=== PATIENT | female | born 1985 | race Two or more races ===

== ENCOUNTER 2018-09-12 15:39 | Emergency (ER) | payer OTHER ==
[~2018-09-12] VITALS: Ht 167.6 cm; Wt 51.3 kg
[2018-09-15] MEDS ORDERED: VALACYCLOVIR1000 MG PO (04:54)
== END 2018-09-12 18:05 | disposition home or self-care (01) ==
LOC: ER 15:39
DX: N34.2 Other urethritis (principal); N76.4 Abscess of vulva

== ENCOUNTER → 2018-09-15 | Emergency (ER) | payer OTHER ==
[~2018-09-15] VITALS: Ht 165.1 cm; Wt 52.2 kg
[~2018-09-15] MED LIST: VALACYCLOVIR1000 MG PO
== END | disposition home or self-care (01) ==
LOC: ER 03:02
DX: S30.824A Blister (nonthermal) of vagina and vulva, initial encounter (principal); A60.04 Herpesviral vulvovaginitis; W26.8XXA Contact with other sharp object(s), not elsewhere classified, initial encounter; Y93.E8 Activity, other personal hygiene; Y92.89 Other specified places as the place of occurrence of the external cause; Y99.8 Other external cause status

== ENCOUNTER 2019-04-21 01:14 | Emergency (ER) | payer OTHER ==
[~2019-04-21] VITALS: Ht 167.6 cm; Wt 49.9 kg
[2019-04-21] MEDS ORDERED: KETO10TA2 PO (02:59)
[2019-04-21] MEDS ORDERED: NORFLEX100MG PO (02:59)
== END 2019-04-21 03:35 | disposition home or self-care (01) ==
LOC: ER 01:14
DX: S13.4XXA Sprain of ligaments of cervical spine, initial encounter (principal); S59.802A Other specified injuries of left elbow, initial encounter; V49.88XA Car occupant (driver) (passenger) injured in other specified transport accidents, initial encounter; Y93.89 Activity, other specified; Y92.413 State road as the place of occurrence of the external cause; Y99.8 Other external cause status